=== PATIENT | female | born 1970 | race American Indian/Alaskan Native ===

== ENCOUNTER 2021-01-25 11:41 | Emergency (ER) | payer SELFPAY ==
[2021-01-25 12:02] VITALS: BP 114/80
[2021-01-25] MEDS ORDERED: FLUORESCEIN 1 MG STRIP OP ONE (12:07)
--- NOTE | 2021-01-25 12:07 | Emergency Department Report ---
ED Eye Problem HPI - General Chief complaint: Eye Problems Stated complaint: FB IN EYES/CANT REMOVE CONTACTS Time Seen by Provider: 01/25/21 12:03 Source: patient Mode of arrival: Ambulatory Limitations: No Limitations - History of Present Illness Initial comments: 50 year old female presents to ED c/o that she believes that her contacts are still in her eyes. Patient states that she has a soft contacts which she removed every night. She states that 4 days ago she tried to remove her contacts and has been unable to. Patient states that she has tried multiple times to remove the contacts but is not coming out. She is also tried nips-ldr-bxxpyct saline solution but without success. She states that she feels it moving in her eye. She denies any drainage from her eye or matting or crusting. She states that she does wear glasses as well. She reports blurry vision but when she wears her glasses the vision is clear. She denies any eye pain. She denies any headache, or any other symptoms at this time. chief complaint: foreign body (Contacts in both eye ) -: Sudden, days(s) (4) - Related Data Previous Rx's Medication Instructions Recorded Last Taken Type Tobramycin 0.3% [Tobrex] 2 drop OU Q4HR 7 Days #1 bottle 01/25/21 Unknown Rx Allergies Allergy/AdvReac Type Severity Reaction Status Date / Time Sulfa (Sulfonamide Allergy Mild LIPS SWELL Verified 01/25/21 11:58 Antibiotics) ED Review of Systems ROS: Stated complaint: FB IN EYES/CANT REMOVE CONTACTS Other details as noted in HPI Comment: All other systems reviewed and negative Eyes: denies: eye pain, eye discharge, vision change ED Past Medical Hx - Past Medical History Previous Medical History?: Yes Hx Psychiatric Treatment: No Additional medical history: Anemia/Fibroids - Surgical History Past Surgical History?: Yes Additional Surgical History: Herniorrhaphy, bilateral tubal ligation - Social History Smoking Status: Current Every Day Smoker Substance Use Type: Alcohol - Medications Home Medications: Home Medications Medication Instructions Recorded Confirmed Last Taken Type Tobramycin 0.3% [Tobrex] 2 drop OU Q4HR 7 Days #1 bottle 01/25/21 Unknown Rx ED Physical Exam - General Limitations: No Limitations General appearance: alert, in no apparent distress - Head Head exam: Present: atraumatic, normocephalic, normal inspection - Eye Eye exam: Present: normal appearance, PERRL, EOMI, other (No FB or contacts noted. Alfonso lamp exam show mild corneal abrasion around 6 oclock of cornea to left eye; right eye normal). Absent: conjunctival injection, periorbital swelling, periorbital tenderness Pupils: Present: normal accommodation - ENT ENT exam: Present: normal exam, mucous membranes moist - Neck Neck exam: Present: normal inspection - Respiratory Respiratory exam: Present: normal lung sounds bilaterally. Absent: respiratory distress - Cardiovascular Cardiovascular Exam: Present: regular rate, normal rhythm - Neurological Exam Neurological exam: Present: alert, oriented X3, CN II-XII intact, normal gait - Psychiatric Psychiatric exam: Present: normal affect, normal mood - Skin Skin exam: Present: intact ED Course Vital Signs 01/25/21 11:59 Temperature 98.2 F Pulse Rate 81 Respiratory 18 Rate Blood Pressure 114/80 O2 Sat by Pulse 99 Oximetry ED Medical Decision Making - Medical Decision Making No contacts noted in patient's eye nor underneath eyelid. Both eyes were irrigated with NS. Re-eval after irrigation and show no FB. She did have very small abrasion noted to left cornea. Re-assured patient that contacts are not in eyes and may have fallen off. She will be started on abx eye drops. I did recommend that she follows up with her ophthamologist next week. Patient expressed understanding of instr uctions and agreed with plan. Pt stable at time of d/c. Critical care attestation.: If time is entered above; I have spent that time in minutes in the direct care of this critically ill patient, excluding procedure time. ED Disposition Clinical Impression: Corneal abrasion, left Disposition: DC-01 TO HOME OR SELFCARE Is pt being admited?: No Does the pt Need Aspirin: No Condition: Stable Instructions: Corneal Abrasion Additional Instructions: I recommend that you use antibiotic eyedrop as prescribed. Follow-up with your educational technology specialist on Wednesday. Continue her new glasses. Return to the ER if symptoms changes or worsens in any way. Prescriptions: Tobramycin 0.3% [Tobrex] 2 drop OU Q4HR 7 Days #1 bottle Referrals: CHICHO DE LA GARZA MD [Staff Physician] - 3-5 Days [facility] [Provider Group] - 3-5 Days Forms: Work/School Release Form(ED) Time of Disposition: 12:26
== END 2021-01-25 12:54 | disposition home or self-care (01) ==
LOC: ED 11:41
DX: S05.02XA Injury of conjunctiva and corneal abrasion without foreign body, left eye, initial encounter (principal); F17.200 Nicotine dependence, unspecified, uncomplicated; D64.9 Anemia, unspecified; Z98.890 Other specified postprocedural states; Z79.899 Other long term (current) drug therapy; Z98.51 Tubal ligation status; Z88.2 Allergy status to sulfonamides; X58.XXXA Exposure to other specified factors, initial encounter; Y93.89 Activity, other specified; Y92.89 Other specified places as the place of occurrence of the external cause; Y99.8 Other external cause status